=== PATIENT | female | born 1960 | race American Indian/Alaskan Native ===

== ENCOUNTER 2017-04-21 13:09 | Outpatient (CLI) | payer BC ==
--- NOTE | 2017-04-21 14:40 | Cat Scan Report ---
Cranial CT without contrast. History: Headaches. Findings: The brain parenchyma is normal. There is no evidence of hemorrhage, infarct, or extra-axial collection. The ventricles are normal in size and contour. There are no masses areas of cortical sulci appear normal. The calvarium is intact. There is extensive mucoperiosteal thickening in the maxillary and ethmoid sinuses bilaterally with associated postoperative changes. Impression: 1. No intracranial abnormalities. 2. Chronic sinus disease and postoperative sinus changes.
== END 2017-04-21 13:10 | disposition home or self-care (01) ==
LOC: CT 13:09
PROVIDERS: ATTEND Internal Medicine
DX: G44.009 Cluster headache syndrome, unspecified, not intractable (principal); J32.9 Chronic sinusitis, unspecified
CPT/HCPCS: 70450